=== PATIENT | female | born 1940 | race Caucasian/White ===

== ENCOUNTER 2017-05-11 20:49 | Inpatient (IN) ==
--- NOTE | 2017-05-11 21:04 | Emergency Department Note ---
Disposition Clinical Impression: Occipital stroke Disposition: Admitted As Inpatient Condition: Good Time of Disposition: 22:35 Neuro HPI - General Chief Complaint: ED Neuro Symptoms/Deficit Stated Complaint: CT Head poss stroke showed bleeding Time Seen by Provider: 05/11/17 20:51 Source: patient Mode of arrival: wheelchair Limitations: no limitations Nursing Notes Reviewed: Yes Vital Signs Reviewed: Yes - History of Present Illness HPI Narrative: Patient is a 76-year-old female with past medical history of hypertension, diabetes, high cholesterol, smoking history. She has as a history of previous MO. Denies any history of strokes, TIA. She presents today due to abnormal MRI. She says that on Monday, she started having symptoms of clotting in vision, difficulty concentrating, abnormal gait, headache. She followed up with [facility] on Monday and had a head CT that she says showed a possible abnormality, she is treated for pain and sent home and was told a neurologist was supposed to call her. She says neurology never called. She then followed up with her primary care physician and had an MRI ordered. She got a call today that her MRI was abnormal and she needed to come immediately to the ER. On presentation, patient denies any worsening of symptoms. She has continued clotting in the peripheral vision, continued difficulty concentrating , continued feeling off balance. Denies any dizziness, any other numbness, tingling, weakness, slurring of speech, facial droop. 2 family members are with her and confirm this story. Not on blood thinners - Related Data Home Medications: Home Medications Medication Instructions Recorded Confirmed Atorvastatin Calcium [Lipitor] 20 mg PO HS 05/11/17 05/11/17 Citalopram [CeleXA] 20 mg PO DAILY 05/11/17 05/11/17 Isosorbide MONOnitrate (24 HR) 30 mg PO DAILY 05/11/17 05/11/17 [Imdur] Lisinopril [Zestril] 20 mg PO DAILY 05/11/17 05/11/17 Sitagliptin Phos/Metformin HCl 1 tab PO BID 05/11/17 05/11/17 [Janumet 50-1,000 mg Tablet] amLODIPine [Norvasc] 5 mg PO DAILY 05/11/17 05/11/17 Allergies/Adverse Reactions: Allergies Allergy/AdvReac Type Severity Reaction Status Date / Time Sulfa (Sulfonamide Allergy Hives Verified 05/11/17 21:02 Antibiotics) All systems ED: reviewed and negative except as stated. Constitutional: Denies: fever Eyes: Reports: vision change Cardiovascular: Denies: chest pain, palpitations Respiratory: Denies: cough, dyspnea, wheezes Gastrointestinal: Denies: abdominal pain, nausea, vomiting Musculoskeletal: Denies: back pain, neck pain Neurological: Reports: headache (not currently, had one on monday). Denies: weakness, numbness, paresthesias Past Medical History - Past Medical History Medical history: Reports: diabetes, hypertension, myocardial infarction Psychiatric history: Reports: no psych history - Social History Smoking Status: Current every day smoker Alcohol use: Reports: none Drug use: Reports: none Physical Exam - General Limitations: no limitations General appearance: alert - Head Head exam: atraumatic, normocephalic, normal inspection - Eye Eye exam: Present: normal appearance, PERRL, EOMI - ENT ENT exam: normal exam, normal oropharynx, mucous membranes moist - Neck Neck exam: Present: normal inspection, full ROM, trachea midline - Chest Chest inspection: Present: normal inspection, symmetric chest wall rise - Respiratory Respiratory exam: Present: normal lung sounds bilaterally - Cardiovascular Cardiovascular exam: Present: regular rate, normal rhythm, normal heart sounds - Abdominal Exam Abdominal exam: Present: soft, Non-Tender. Absent: tenderness, distention, guarding, rebound, rigidity - Extremities Exam Extremities exam: Present: normal inspection, full ROM. Absent: tenderness, pedal edema - Neurological Exam Neurological exam: Present: alert, oriented X3, other (Clouding in peripheral vision but no loss of vision; no other focal neurologic deficit. No facial droop, no slurring of speech, no drift of bilateral upper and lower extremities. Sensation intact of all extremity. No ataxia with finger-nose- finger testing bilaterally). Absent: motor sensory deficit - Psychiatric Psychiatric exam: Present: normal affect, normal mood - Skin Skin exam: Present: warm, dry, intact, normal color Course Course Narrative: Patient is hypertensive. The rest of the vitals within normal limits. Physical exam shows clouding of vision but no loss of vision. Otherwise, no other focal neurologic deficit. No facial droop, no slurring of speech, no drift of bilateral upper and lower extremities. Sensation intact of all extremity. No ataxia with [id number] testing bilaterally. Visual change started monday, no need for stroke alert at this time. Outside window for TPA or embolectomy. MRI shows: IMPRESSION: 1. Acute small volume ischemic infarct in the right occipital lobe. 2. No acute intracranial hemorrhage or mass effect. 3. Multifocal encephalomalacia in the bilateral frontal and right occipital lobes and multiple remote lacunar infarcts in the basal ganglia, thalami, and cerebellar hemispheres suggesting chronic central embolic etiology. 4. Moderate chronic white matter microvascular ischemic changes. 5. Incidental small left parietal parafalcine meningioma. No associated mass effect. We will wait for basic blood work to come back and then we will admit for further stroke workup. 22:11 Hgb and WBC, Creatinine is WNL. Trop negative. Will admit for further care. Vital Signs Temperature 98.6 F 05/11/17 20:57 Pulse Rate 91 05/11/17 20:57 Respiratory Rate 18 05/11/17 20:57 Blood Pressure 181/76 05/11/17 20:57 O2 Sat by Pulse Oximetry 93 05/11/17 20:57 Temperature 98.3 F 05/11/17 23:47 Pulse Rate 75 05/11/17 23:47 Respiratory Rate 17 05/11/17 23:47 Blood Pressure 162/65 05/11/17 23:47 O2 Sat by Pulse Oximetry 92 05/11/17 23:47 Oxygen Delivery Oxygen Delivery Room Air Neuro Symptoms/Deficit - MDM Narrative Medical decision making narrative: MRI shows occipital stroke. Hgb and WBC, Creatinine is WNL. Trop negative. Will admit for further care. We will wait for basic blood work to come back and then we will admit for further stroke workup. Dr. Valdez wanted me to contact neuro for any recs once admitted. Dr. Arias recommended daily aspirin and at CTA of the neck once admitted. - Medical Records Medical records reviewed: Yes I reviewed the patient's medical records. - Lab Data Lab results reviewed: Yes I reviewed the patient's lab results. Result diagrams: 05/11/17 20:57 05/11/17 21:19 Lab Results 05/11/17 05/11/17 05/11/17 Range/Units 20:57 20:57 21:19 WBC 10.0 (4.3-11.1) K/mcL RBC 5.41 H (3.82-4.97) M/mcL Hgb 13.0 (11.5-15.4) g/dL Hct 41.8 (35.3-44.9) % MCV 77.3 L (83.0-100.0) fL MCH 24.0 L (28.0-33.3) pg MCHC 31.1 L (31.6-35.5) g/dL RDW 19.0 H (11.5-14.5) % Plt Count 369 (140-400) K/mcL MPV 9.2 L (9.4-12.4) fL Immature Gran % 0.2 (0-4) % Seg Neutrophils % 71.4 % Lymphocytes % 20.5 % Monocytes % 6.2 % Eosinophils % 1.1 % Basophils % 0.6 % Neutrophils # 7.2 (1.6-8.9) K/mcL Lymphocytes # 2.1 (0.6-4.6) K/mcL Monocytes # 0.6 (0.0-1.3) K/mcL Eosinophils # 0.1 (0.0-0.6) K/mcL Basophils # 0.1 (0.0-0.2) K/mcL Immature Plt Fraction 3.4 (1.1-6.1) % PT 11.3 (9.4-12.1) Seconds INR 1.1 APTT 32.1 (26.0-36.0) Seconds Sodium 134 L (136-145) mEq/L Potassium 4.2 (3.5-4.5) mEq/L Chloride 105 (98-109) mEq/L Carbon Dioxide 17 L (19-29) mEq/L BUN 6 L (7-20) mg/dL Creatinine 0.74 (0.57-1.11) mg/dL Est GFR ( Amer) > 60 (> 60) Est GFR (Non-Af Amer) > 60 (> 60) BUN/Creatinine Ratio 8 (6-26) Glucose 114 H (70-99) mg/dL Calculated Osmolality 276 L (280-300) Calcium 9.6 (8.6-10.8) mg/dL Troponin I (0-0.03) ng/mL 05/11/17 Range/Units 21:19 WBC (4.3-11.1) K/mcL RBC (3.82-4.97) M/mcL Hgb (11.5-15.4) g/dL Hct (35.3-44.9) % MCV (83.0-100.0) fL MCH (28.0-33.3) pg MCHC (31.6-35.5) g/dL RDW (11.5-14.5) % Plt Count (140-400) K/mcL MPV (9.4-12.4) fL Immature Gran % (0-4) % Seg Neutrophils % % Lymphocytes % % Monocytes % % Eosinophils % % Basophils % % Neutrophils # (1.6-8.9) K/mcL Lymphocytes # (0.6-4.6) K/mcL Monocytes # (0.0-1.3) K/mcL Eosinophils # (0.0-0.6) K/mcL Basophils # (0.0-0.2) K/mcL Immature Plt Fraction (1.1-6.1) % PT (9.4-12.1) Seconds INR APTT (26.0-36.0) Seconds Sodium (136-145) mEq/L Potassium (3.5-4.5) mEq/L Chloride (98-109) mEq/L Carbon Dioxide (19-29) mEq/L BUN (7-20) mg/dL Creatinine (0.57-1.11) mg/dL Est GFR ( Amer) (> 60) Est GFR (Non-Af Amer) (> 60) BUN/Creatinine Ratio (6-26) Glucose (70-99) mg/dL Calculated Osmolality (280-300) Calcium (8.6-10.8) mg/dL Troponin I 0.01 (0-0.03) ng/mL - Radiology Data Radiology results reviewed: Yes I reviewed the patient's radiology results. Sudhir - Sudhir Situation: Demographics, MOA Background: Presenting Complaint, Relevant PMH, Meds, & Allergies Assessment: Vital Signs, Course and respsone to treatment, Exam Concerns, Patient/Family Expectation, Pertinant Lab Results, Outstanding Labs Recommendation: Barrier(s) to disposition, Recommendation based on pending studies, treatments, or consults Sudhir Report Given to: Dr. Courtney Peguero Repor Time: 22:35 Attestation Statement - Attestation Attestation: I, Johnathan Engel, examined this patient and my medical decision-making was reviewed with the SCIENTIFIC MANAGER/PA/Advanced Practice Nurse/Resident Physician. I agree with the documented findings, disposition and treatment plan as described except to the extent set forth below. 76-year-old female presents emergency Department with concerns of CVA. Patient states she was seen recently for acute onset of lightheadedness and difficulty with ambulation. She was discharged home, her PCP ordered MRI which shows a posterior CVA. Patient will be admitted to the emergency department for further evaluation of subacute CVA
[2017-05-11 21:27] LABS: Basophils # 0.1 K/mcL (0.0-0.2); Basophils % 0.6 %; Eosinophils # 0.1 K/mcL (0.0-0.6); Eosinophils % 1.1 %; Hematocrit 41.8 % (35.3-44.9); Immature Granulocytes % 0.2 % (0-4); Immature Platelets 3.4 % (1.1-6.1); Lymphocytes # 2.1 K/mcL (0.6-4.6); Lymphocytes % 20.5 %; Mean Corpuscular HGB Conc 31.1 g/dL (31.6-35.5); Mean Corpuscular Volume 77.3 fL (83.0-100.0); Mean Platelet Volume 9.2 fL (9.4-12.4); Monocytes # 0.6 K/mcL (0.0-1.3); Monocytes % 6.2 %; Neutrophils # 7.2 K/mcL (1.6-8.9); Platelet Count 369 K/mcL (140-400); Red Blood Count 5.41 M/mcL (3.82-4.97); Segmented Neutrophils % 71.4 %
[2017-05-11 21:33] LABS: INR 1.1; Prothrombin Time 11.3 Seconds (9.4-12.1)
[2017-05-11 21:36] LABS: Activated Partial Thrombo Time 32.1 Seconds (26.0-36.0)
[2017-05-11 22:02] LABS: BUN/Creatinine Ratio 8 (6-26); Blood Urea Nitrogen 6 mg/dL (7-20); Calcium 9.6 mg/dL (8.6-10.8); Carbon Dioxide 17 mEq/L (19-29); Chloride 105 mEq/L (98-109); Glucose 114 mg/dL (70-99); Osmolality,Calculated 276 (280-300); Potassium 4.2 mEq/L (3.5-4.5); Sodium 134 mEq/L (136-145); eGFR For African Americans > 60 (> 60); eGFR For Non-African Americans > 60 (> 60)
[2017-05-11] MEDS ORDERED: Aspirin 325 MG TABLET PO ONE (22:30)
[2017-05-12] MEDS ORDERED: Naloxone 0.4 MG/ML INJ IVP PRN (00:28)
[2017-05-12] MEDS ORDERED: *HR* Dextrose 50 % in Water (Syg) 50 ML SYRINGE IVP PRN (00:28)
[2017-05-12] MEDS ORDERED: Acetaminophen 325 MG TABLET PO PRN (00:28)
[2017-05-12] MEDS ORDERED: Dextrose Gel 15 GM PO PRN ×2 (00:28)
[2017-05-12] MEDS ORDERED: D5% in Water 1,000 ML IVC PRN (00:28)
[2017-05-12] MEDS ORDERED: Ondansetron 4 MG/2 ML VIAL IVP PRN (00:28)
--- NOTE | 2017-05-12 00:28 | Internal Med History&Physical ---
<Travon Edge - Last Filed: 05/12/17 01:18> Date of Encounter: 05/12/17 Time of Encounter: 23:45 Assessment and Plan (1) Occipital stroke Current visit: Yes Status: Acute Patient found to have acute CVA occipital region. This distribution corresponds to her reported symptoms. Because patient reports symptoms started Monday, patient beyond the window for embolectomy or TPA. Patient beyond window for allowing permissive hypertension. Patient hypertension will be addressed with her home indications Neuro has been consulted by the ET, appreciate recommendations for continued management/care Marky aspirin We will obtain CTA of head and neck Continue patient home dose Lipitor 20 mg Lipid panel in morning Electrolytes and CBC in morning (2) Hypertension Current visit: Yes Status: Acute Patient has a history of hypertension and uses amlodipine and lisinopril at home. Patient out of the acute phase of CVA, so no longer allowing permissive hypertension. Will restart patient's home medications Qualifiers: Hypertension type: essential hypertension Qualified Code(s): I10 - Essential (primary) hypertension (3) Diabetes mellitus Current visit: Yes Status: Acute Hold patient's oral hypoglycemic Start low-dose insulin sliding scale Qualifiers: Diabetes mellitus type: type 2 Diabetes mellitus complication status: with unspecified complications Diabetes mellitus technician terminal and repeater insulin use: without technician terminal and repeater use Qualified Code(s): E11.8 - Type 2 diabetes mellitus with unspecified complications (4) CAD (coronary artery disease) Current visit: Yes Status: Chronic Stable Qualifiers: Coronary Disease-Associated Artery/Lesion type: [place] artery [place] vs. transplanted heart: [place] heart Associated angina: angina presence unspecified Qualified Code(s): I25.10 - Atherosclerotic heart disease of [place] coronary artery without angina pectoris (5) DVT prophylaxis Current visit: Yes Status: Acute 40 mg Lovenox subcutaneous daily Internal Medicine - H&P: HPI Chief complaint: Acute CVA Admitted From: Home Plans for Post Hospital Care: Home History of present illness: Ms. Marin is a 76 year old female with prior medical history of coronary artery disease (with heart attack in 1993 with 1 stent), hypertension, diabetes , hyperlipidemia presents to [facility] after results of MRI earlier this afternoon. She reports that beginning on Monday she began experiencing severe headache unlike any headache she said before, she reports the pain is 9/10 in severity and in bilateral temples. She had no neck stiffness or for phobia at this time , but due to her concern of headache she presented to [facility] ER. They did some scans and told her there is something abnormal on her CT urogram syrup with neuro, she has not heard anything since then. She reports that she continued to have headache despite trying Tylenol nothing was making it better, nothing is making it worse. She states that given the duration of her headache she was also complaining of some fatigue and changes in her vision including blurriness , floaters, and wavy appearance of her peripheral vision. She denies ever having numbness/tingling, unilateral weakness, facial droop, or slurred speech. He denies palpitations, chest pain, shortness of breath, fever/chills. She saw her PCP on Monday who gave her a shot and order an MRI. She had the MRI earlier this afternoon and on her way home she was called by [facility] due to the finding of an acute CVA in the occipital region of her head. Past Med Surg Social Fam HX - Past Medical History Medical history: diabetes, hypertension, myocardial infarction Psychiatric history: no psych history - Social History Smoking Status: Current every day smoker Alcohol use: none Drug use: none Internal Medicine - H&P: Meds Atorvastatin Calcium [Lipitor] 20 mg PO HS 05/11/17 [History] Citalopram [CeleXA] 20 mg PO DAILY 05/11/17 [History] Isosorbide MONOnitrate (24 HR) [Imdur] 30 mg PO DAILY 05/11/17 [History] Lisinopril [Zestril] 20 mg PO DAILY 05/11/17 [History] Sitagliptin Phos/Metformin HCl [Janumet 50-1,000 mg Tablet] 1 tab PO BID [History] amLODIPine [Norvasc] 5 mg PO DAILY 05/11/17 [History] 3 Allergy/AdvReac Type Severity Reaction Status Date / Time Sulfa (Sulfonamide Allergy Hives Verified 05/11/17 21:02 Antibiotics) Review of systems: Gen: Denies fever, denies chills, denies weightloss, denies weakness, reports fatigue CV: Denies chest pain, denies exertional chest pain or dyspnea, denies palpitations Resp: Denies shortness of breath, denies dyspnea, denies pleuritic pain, denies coughing, denies changes in phlegm production, denies wheeze GI: Denies nausea, denies vomiting, denies abdominal pain, denies constipation, denies diarrhea, denies hematochezia, denies melena MSK: denies arthralgia, denies muscle weakness Neuro: Reports headache as per history of present illness, denies confusion, denies focal weakness, denies numbness, denies tingling, reports vision changes as per history of present illness, denies slurred speech, reports vertigo ( present prior to CVA), denies neck pain, denies photophobia Skin: Denies bruising, denies rash : Denies flank pain, denies dysuria, denies hematuria - Constitutional Vitals: Temp Pulse Resp BP Pulse Ox 98.3 F 75 17 162/65 92 05/11/17 23:47 05/11/17 23:47 05/11/17 23:47 05/11/17 23:47 05/11/17 23:47 Exam: General: Cooperative, pleasant, no acute distress, alert and oriented 3, answers questions appropriately HEENT: Normocephalic, atraumatic, neck supple, trachea midline, Conjunctiva pink , sclera anicteric, EOMI, PERRL, oral mucosa moist, no orophargeal erythema or exudates Respiratory: No accessory muscle usage, clear to auscultation bilaterally, no wheezes/rhonchi/rales appreciated Cardiovascular: Regular rate and rhythm, S1 and S2 present, no murmurs/rubs/ gallops/clicks appreciated GI/abdominal: Nondistended, nontender, soft, normal bowel sounds, no peritoneal signs Extremities: No calf tenderness, noncyanotic, no pedal edema appreciated, warm, lower extremity pulses palpable and symmetrical Neurological: Alert and oriented 3, no facial droop, no focal deficits, cranial nerves II through XII grossly intact, sensation to light touch grossly intact, strength 5/5 in upper and lower extremities bilaterally, rapid alternating movement smooth with good [place], [id number] accurate without tremors, mild nystagmus present, Romberg negative, gait slightly unbalanced, but grossly steady Skin: Dry, intact, normal color Internal Med - H&P Results - Labs CBC & Chem 7: 05/11/17 20:57 05/11/17 21:19 <Chalino Watts T - Last Filed: 05/12/17 01:55> Date of Encounter: 05/12/17 Internal Medicine - H&P: HPI History of present illness: Ms. Marin is a 76 year old female All Systems PM: A 10-system review of systems was performed and is negative for pertinent findings except as documented above in the HPI. - Constitutional Vitals: Temp Pulse Resp BP Pulse Ox 98.3 F 75 17 162/65 92 05/11/17 23:47 05/11/17 23:47 05/11/17 23:47 05/11/17 23:47 05/11/17 23:47 Internal Med - H&P Results - Labs CBC & Chem 7: 05/11/17 20:57 05/11/17 21:19 - Attending Attestation I have independently seen and examined this patient on 05/12/17 and reviewed plan of care with the NEW ACCOUNTS BANKING REPRESENTATIVE/resident physician and the patient She is admitted following a finding of occipital infarct on her brain MRI which was ordered by her PCP after patient complained of blurry vision and headaches, she is asymptomatic at time of review. Physical Exam: VSS, not in distress. Neuro: AAOX3, no gross deficits, chest is CTAB, not tender no guarding. BS present in all quadrants. Her chest is CTAB Labs and Imaging reviewed: Mild hyponatremia, otherwise unremarkable A/P Acute Ischemic CVA with no motor or speech deficits: Onset about a week. ASA/ Statin, continue home meds. Patient has an ECHO from 02/2017 that was unremarkable except for mild MS/MR. Her Infarct is not embolic in nature, no need to repeat ECHO at this time. Head/Neck CTA per Neuro. Rest of details as in resident physicians documentation
[2017-05-12] MEDS: Melatonin 3 MG TABLET PO PRN ×2 (01:19→23:11)
[2017-05-12] MEDS: *HR* Enoxaparin 40 MG/0.4 ML SYRINGE SQ SCH (06:36)
[2017-05-12 06:44] LABS: Basophils # 0.1 K/mcL (0.0-0.2); Basophils % 0.6 %; Eosinophils # 0.1 K/mcL (0.0-0.6); Eosinophils % 1.8 %; Hematocrit 37.9 % (35.3-44.9); Hemoglobin 12.1 g/dL (11.5-15.4); Immature Granulocytes % 0.4 % (0-4); Lymphocytes # 2.1 K/mcL (0.6-4.6); Lymphocytes % 26.1 %; Mean Corpuscular HGB Conc 31.9 g/dL (31.6-35.5); Mean Corpuscular Hemoglobin 24.7 pg (28.0-33.3); Mean Corpuscular Volume 77.3 fL (83.0-100.0); Mean Platelet Volume 9.2 fL (9.4-12.4); Monocytes # 0.7 K/mcL (0.0-1.3); Monocytes % 8.8 %; Platelet Count 301 K/mcL (140-400); Segmented Neutrophils % 62.3 %
[2017-05-12 07:04] LABS: BUN/Creatinine Ratio 8 (6-26); Blood Urea Nitrogen 6 mg/dL (7-20); Calcium 9.4 mg/dL (8.6-10.8); Carbon Dioxide 18 mEq/L (19-29); Chloride 111 mEq/L (98-109); Cholesterol 107 mg/dL (< 200); Glucose 126 mg/dL (70-99); HDL Cholesterol 36 mg/dL (40-59); LDL Cholesterol,Calculated 47 mg/dL (0-99); Magnesium 1.8 mg/dL (1.6-2.6); Osmolality,Calculated 289 (280-300); Phosphorous 3.7 mg/dL (2.3-4.7); Potassium 4.1 mEq/L (3.5-4.5); Sodium 140 mEq/L (136-145); Triglycerides 119 mg/dL (< 150); eGFR For African Americans > 60 (> 60); eGFR For Non-African Americans > 60 (> 60)
[2017-05-12] MEDS: Insulin LISPRO 300 UNITS/3 ML VIAL SQ SCH ×3 (08:12→17:20)
[2017-05-12] MEDS ORDERED: Aspirin 325 MG TABLET PO SCH ×2 (09:00→11:30)
--- NOTE | 2017-05-12 09:53 | Neurology - Consult Note ---
Date of Encounter: 05/12/17 Time of Encounter: 08:05 Assessment and Plan (1) Occipital stroke Current Visit: Yes Status: Acute This patient who noted to have an occipital infarct on an MRI that was done as an outpatient is some blurred vision as well as the headaches. At this time she denies any significant headaches she is still having some blurred vision but no visual field deficit noted on examination. Certainly the blurred vision could be related to the occipital infarct. She does have multiple risk factors including hypertension and diabetes that need to be controlled and make sure that this is within normal limit Patient has been on aspirin for quite some time I suggested that we should change her antiplatelet therapy to Plavix and discontinue aspirin as do not think that she would require dual antiplatelet therapy. She will need workup including CT angiogram of the neck particularly to look for posterior circulation abnormalities for any stenosis or any embolic source at the same time she also needs an echocardiogram. Due to the fact that she did not have any focal motor weakness do not think that she would require any physical therapy or rehabilitation. 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 Marin is a 76 year old female with Past medical history of coronary artery disease, hypertension, diabetes, hyperlipidemia presents to [facility] after having out pt MRI that showed occipitlal infarct, according to pt, since Monday she began experiencing severe headache in bilateral temples. as she was concern of headache she presented to [facility] ER. They did some scans and told her there is something abnormal on her CT and told to followup with neuro, she has not heard anything since then. She reports that she continued to have headache despite trying Tylenol, she was also complaining of some fatigue and changes in her vision describe it as blurriness, floaters, and wavy appearance of her peripheral vision. She denies ever having numbness/tingling, unilateral weakness, facial droop, or slurred speech. later She saw her PCP on Monday who gave her a shot and order an MRI. She had the MRI earlier this afternoon and on her way home she was called by [facility] due to the finding of an acute CVA in the occipital region. she denies any new symptoms as doing well now. no focal motor weakness. Past Med Surg Social Fam HX - Past Medical History Medical history: CVA, diabetes, hyperlipidemia, hypertension, myocardial infarction Psychiatric history: no psych history - Past Surgical History Surgical History: cholecystectomy - Social History Smoking Status: Current every day smoker Packs per day: 1 Alcohol use: none Drug use: none - Family History Mother Living Status: Age at : 86 Cause of : Renal disease Hx Family Cardiac Disorders: Yes (CKD) Hx Family Cancer: Yes (Cervical cancer) Medications and Allergies Atorvastatin Calcium [Lipitor] 20 mg PO HS 05/11/17 [History] Citalopram [CeleXA] 20 mg PO DAILY 05/11/17 [History] Isosorbide MONOnitrate (24 HR) [Imdur] 30 mg PO DAILY 05/11/17 [History] Lisinopril [Zestril] 20 mg PO DAILY 05/11/17 [History] Sitagliptin Phos/Metformin HCl [Janumet 50-1,000 mg Tablet] 1 tab PO BID [History] amLODIPine [Norvasc] 5 mg PO DAILY 05/11/17 [History] 3 Allergy/AdvReac Type Severity Reaction Status Date / Time Sulfa (Sulfonamide Allergy Hives Verified 05/11/17 21:02 Antibiotics) All Systems: A 10-system review of systems was performed and is negative for pertinent findings except as documented above in the HPI. Physical Examination - Vital Signs Vital Signs: Initial Vital Signs Temp Pulse Resp BP Pulse Ox 98.6 F 91 18 181/76 93 05/11/17 20:57 05/11/17 20:57 05/11/17 20:57 05/11/17 20:57 05/11/17 20:57 - Constitutional General appearance: comfortable - Neurologic Detailed motor examination: full strength in all major muscle groups Motor examination - right side: 5/5: deltoids, biceps, triceps, wrist flexion, wrist extension, master ocean, hip flexors, tibialis Anterior, quadriceps, toe extension (EHL), plantarflexion Motor examination - left side: 12/23: deltoids, biceps, triceps, wrist flexion, wrist extension, hip flexors, master ocean, quadriceps, tibialis Anterior, toe extension (EHL), plantarflexion Reflexes: Biceps: 1+, Triceps: 1+, Brachioradialis: 1+, Patella: 1+, Achilles: 1 + Mental Status Examination: awake, alert, oriented to person, oriented to place, oriented to time, follows commands appropriately, answers questions appropriately, no agnosia, no aphasia, no aproxia, follows simple commands (no visual field cut, just blurred vision in both eyes) Cranial nerve examination: PERRL, EOMI, visual case intact, corneal reflexes brisk symmetrically, sensory to face intact, mastication intact, no facial asymmetry is present, no dysarthria, hearing is intact symmetrically, soft palate elevates bilaterally upon phonation, gag reflex intact, flexes SCM and trapezius muscles symmetrically with full power, tongue protrudes midline, no atrophy or facial fasiculations present Cerebellar examination: no dysmetria, performs finger to nose and heel to montaño symmetrically without ataxia, no gait ataxia, no truncal ataxia, no difficulty with rapid alternating movements Results - Laboratory Findings CBC and BMP: 05/12/17 06:27 05/12/17 06:27 Abnormal lab findings: Abnormal lab results MCV 77.3 fL (83.0-100.0) L 05/12/17 06:27 MCH 24.7 pg (28.0-33.3) L 05/12/17 06:27 RDW 19.0 % (11.5-14.5) H 05/12/17 06:27 MPV 9.2 fL (9.4-12.4) L 05/12/17 06:27 Chloride 111 mEq/L (98-109) H 05/12/17 06:27 Carbon Dioxide 18 mEq/L (19-29) L 05/12/17 06:27 BUN 6 mg/dL (7-20) L 05/12/17 06:27 Glucose 126 mg/dL (70-99) H 05/12/17 06:27 POC Glucose 144 (58-89) H 05/12/17 01:01 HDL Cholesterol 36 mg/dL (40-59) L 05/12/17 06:27 Consult Discharge Plan - Plan Referrals: Aura Marr, LIDIA [Primary Care Provider] -
[2017-05-12] MEDS: Lisinopril 20 MG TABLET PO SCH (11:39)
[2017-05-12] MEDS: amLODIPine 5 MG TABLET PO SCH (11:39)
[2017-05-12] MEDS: Isosorbide MONOnitrate (24 HR) 30 MG TAB.ER.24H PO SCH (11:39)
--- NOTE | 2017-05-12 17:43 | Internal Med Progress Note ---
Date of Encounter: 05/12/17 Time of Encounter: 10:00 - Assessment and plan (1) Occipital stroke Current Visit: Yes Status: Acute Assessment and plan: Patient has dizziness and vision change 5 days ago. Outside MRI shows occipital stroke. Symptoms improved now. - We will continue cardiac monitoring. Check echo. Angiogram of neck and head. - Place patient on Plavix per neurology consult. -Patient is also on atorvastatin. - We will follow-up neurology further recommendations (2) Diabetes mellitus Current Visit: Yes Status: Acute Assessment and plan: Cover patient with sliding scale Qualifiers: Diabetes mellitus type: type 2 Diabetes mellitus complication status: with unspecified complications Diabetes mellitus intermodal customer service insulin use: without care home use Qualified Code(s): E11.8 - Type 2 diabetes mellitus with unspecified complications (3) Hypertension Current Visit: Yes Status: Acute Assessment and plan: Continue home medications Qualifiers: Hypertension type: essential hypertension Qualified Code(s): I10 - Essential (primary) hypertension (4) DVT prophylaxis Current Visit: Yes Status: Acute Assessment and plan: Lovenox SC (5) CAD (coronary artery disease) Current Visit: Yes Status: Chronic Assessment and plan: Denies chest pain. Continue home medications Qualifiers: Coronary Disease-Associated Artery/Lesion type: [place] artery [place] vs. transplanted heart: [place] heart Associated angina: angina presence unspecified Qualified Code(s): I25.10 - Atherosclerotic heart disease of [place] coronary artery without angina pectoris - Time Spent With Patient 25 - 35 minutes - Subjective Interval history: Patient is a 76-year-old female admitted for occipital stroke. Her past medical history significant for diabetes, hypertension, hyperlipidemia, CAD S/P stent Pt was seen and examined. Blurred vision has been improved. Patient has no visual field deficit on physical exam. Vitals are stable. Neurology consult appreciated. Patient is on Plavix and atorvastatin. - Constitutional Vitals: Temp Pulse Resp BP Pulse Ox 98.2 F 95 12 153/61 95 05/12/17 15:08 05/12/17 15:08 05/12/17 15:08 05/12/17 15:08 05/12/17 15:08 - Head Head exam: Present: atraumatic, normocephalic - Eye Eye exam: Present: PERRL, conjuntiva pink, sclera anicteric Pupils: Present: PERRL - Neck Neck exam general surgery: Present: supple, trachea midline. Absent: lymphadenopathy - Respiratory Respiratory exam: Present: CTAB. Absent: accessory muscle use, rales, rhonchi, wheezes - Cardiovascular Cardiovascular exam: Present: RRR, +S1, +S2. Absent: diastolic murmur, gallop, rubs, systolic murmur - GI/Abdominal GI/Abdominal exam: Present: normal bowel sounds, soft, no peritoneal signs. Absent: distended, tenderness - Extremities Exam Extremities exam: Present: warm, radial pulses palpable and symmetrical. Absent : calf tenderness, cyanotic, pedal edema - Neurological Exam Neurological exam: Present: CN II-XII intact, oriented X3, no focal deficits. Absent: pronater drift, facial droop, speech deficit - Skin Skin exam: Present: dry, intact Internal Medicine: Result - Labs CBC & Chem 7: 05/12/17 06:27 05/12/17 06:27 - ABG Interpretation ABG results: PT/INR, D-dimer PT 11.3 Seconds (9.4-12.1) 05/11/17 20:57 Consult Discharge Plan - Plan Referrals: Aura Marr, ANGLE SHEAR OPERATOR [Primary Care Provider] -
[2017-05-12] MEDS ORDERED: Insulin LISPRO 300 UNITS/3 ML VIAL SQ SCH (21:00)
[2017-05-13] MEDS: *HR* Enoxaparin 40 MG/0.4 ML SYRINGE SQ SCH (06:21)
[2017-05-13 06:34] LABS: Basophils # 0.1 K/mcL (0.0-0.2); Basophils % 0.6 %; Eosinophils # 0.2 K/mcL (0.0-0.6); Hematocrit 36.3 % (35.3-44.9); Hemoglobin 11.5 g/dL (11.5-15.4); Immature Granulocytes % 0.2 % (0-4); Lymphocytes # 2.1 K/mcL (0.6-4.6); Lymphocytes % 25.6 %; Mean Corpuscular HGB Conc 31.7 g/dL (31.6-35.5); Mean Corpuscular Hemoglobin 24.4 pg (28.0-33.3); Mean Corpuscular Volume 77.1 fL (83.0-100.0); Mean Platelet Volume 9.5 fL (9.4-12.4); Monocytes # 0.8 K/mcL (0.0-1.3); Monocytes % 9.5 %; Neutrophils # 5.1 K/mcL (1.6-8.9); Platelet Count 303 K/mcL (140-400); Red Blood Count 4.71 M/mcL (3.82-4.97); Red Cell Distribution Width 18.4 % (11.5-14.5); Segmented Neutrophils % 62.1 %
[2017-05-13 06:49] LABS: BUN/Creatinine Ratio 9 (6-26); Blood Urea Nitrogen 7 mg/dL (7-20); Calcium 9.3 mg/dL (8.6-10.8); Carbon Dioxide 19 mEq/L (19-29); Chloride 107 mEq/L (98-109); Glucose 140 mg/dL (70-99); Osmolality,Calculated 282 (280-300); Sodium 136 mEq/L (136-145); eGFR For African Americans > 60 (> 60); eGFR For Non-African Americans > 60 (> 60)
[2017-05-13] MEDS: Lisinopril 20 MG TABLET PO SCH (08:16)
[2017-05-13] MEDS: amLODIPine 5 MG TABLET PO SCH (08:16)
[2017-05-13] MEDS: Isosorbide MONOnitrate (24 HR) 30 MG TAB.ER.24H PO SCH (08:16)
[2017-05-13] MEDS: Insulin LISPRO 300 UNITS/3 ML VIAL SQ SCH (08:16)
--- NOTE | 2017-05-13 14:57 | Discharge Summary ---
Date of Encounter: 05/13/17 Time of Encounter: 10:00 - Discharge Diagnosis (1) Occipital stroke Priority: Primary Status: Acute (2) Diabetes mellitus Priority: Secondary Status: Acute Qualifiers: Diabetes mellitus type: type 2 Diabetes mellitus complication status: with unspecified complications Diabetes mellitus termite control service representative insulin use: without long-term use Qualified Code(s): E11.8 - Type 2 diabetes mellitus with unspecified complications (3) Hypertension Priority: Secondary Status: Acute Qualifiers: Hypertension type: essential hypertension Qualified Code(s): I10 - Essential (primary) hypertension (4) DVT prophylaxis Priority: Secondary Status: Acute (5) CAD (coronary artery disease) Priority: Secondary Status: Chronic Qualifiers: Coronary Disease-Associated Artery/Lesion type: [place] artery [place] vs. transplanted heart: [place] heart Associated angina: angina presence unspecified Qualified Code(s): I25.10 - Atherosclerotic heart disease of [place] coronary artery without angina pectoris - Discharge Medications Prescriptions: amLODIPine [Norvasc] 10 mg PO DAILY #60 tablet Atorvastatin [Lipitor] 40 mg PO HS #30 tablet Clopidogrel [Plavix] 75 mg PO DAILY #30 tablet Home Medications: Citalopram [CeleXA] 20 mg PO DAILY 05/11/17 [History] Isosorbide MONOnitrate (24 HR) [Imdur] 30 mg PO DAILY 05/11/17 [History] Lisinopril [Zestril] 20 mg PO DAILY 05/11/17 [History] Sitagliptin Phos/Metformin HCl [Janumet 50-1,000 mg Tablet] 1 tab PO BID [History] Aspirin Enteric Coated [Aspirin EC] 81 mg PO DAILY #30 tablet. 05/13/17 [Rx] Atorvastatin [Lipitor] 40 mg PO HS #30 tablet 05/13/17 [Rx] Clopidogrel [Plavix] 75 mg PO DAILY #30 tablet 05/13/17 [Rx] amLODIPine [Norvasc] 10 mg PO DAILY #60 tablet 05/13/17 [Rx] Allergies/Adverse Reactions: 3 Allergy/AdvReac Type Severity Reaction Status Date / Time Sulfa (Sulfonamide Allergy Hives Verified 05/11/17 21:02 Antibiotics) - Notes to Outpatient Provider 1. Patient's amlodipine was increased from 5 mg by mouth daily to 10 mg daily due to high blood pressure. 2. Patient was given aspirin and Plavix and statin for carotid stenosis. Please repeated duplex carotid in 12 months to follow the progression of the stenosis. Date of admission: 05/12/17 13:50 Primary care physician: Aura Marr CNP Discharging clinician: Criss Mercado Anticipated date of discharge: 05/13/17 - Patient Status Disposition: Home, Self-Care Condition: Good Functional capacity at discharge: independent ambulation Overall status at discharge: patient is back to baseline - Discharge Instructions Follow Up With: Aura Marr CNP [Primary Care Provider] - Additional Instructions: Follow-up with neurology - Diet and Activity Activity: increase activity as tolerated Diet: diabetic diet, low salt diet Interval History: HPI on ADM: Ms. Marin is a 76 year old female with prior medical history of coronary artery disease (with heart attack in 1993 with 1 stent), hypertension, diabetes , hyperlipidemia presents to [facility] after results of MRI earlier this afternoon. She reports that beginning on Monday she began experiencing severe headache unlike any headache she said before, she reports the pain is 9/10 in severity and in bilateral temples. She had no neck stiffness or for phobia at this time , but due to her concern of headache she presented to [facility] ER. They did some scans and told her there is something abnormal on her CT urogram syrup with neuro, she has not heard anything since then. She reports that she continued to have headache despite trying Tylenol nothing was making it better, nothing is making it worse. She states that given the duration of her headache she was also complaining of some fatigue and changes in her vision including blurriness , floaters, and wavy appearance of her peripheral vision. She denies ever having numbness/tingling, unilateral weakness, facial droop, or slurred speech. He denies palpitations, chest pain, shortness of breath, fever/chills. She saw her PCP on Monday who gave her a shot and order an MRI. She had the MRI earlier this afternoon and on her way home she was called by [facility] due to the finding of an acute CVA in the occipital region of her head. Hospital course: Ms. Marin is a 76 year old female admitted for occipital stroke. Patient was placed on continuous cardiac monitoring, and platelet and statin. Neurology consult was called and saw patient. Patient had echo and CTA neck and head. Echo shows moderate diastolic dysfunction, otherwise unremarkable. CTA shows no vertebral and posterior cerebral circulation stenosis. However, patient has mild to moderate bilateral ICA stenosis (Rt less than 50%, Lt 50-69%). The patient was placed on medical treatment with aspirin, Plavix, and atorvastatin. Patient was advised to follow-up duplex carotid in 12 months. Generally patient functions well. Visual deficit has improved. PTOT saw patient, no further PTOT needed. Patient can be discharged home. I saw and examined the patient today. Doing fine, no complaints. BP is at high side with SBP 166, will increase patient's amlodipine from 5 mg daily to 10 mg daily. Patient will be discharged home and follow-up with PCP and neurology as outpatient. - Time Spent with Patient Total time spent providing and/or coordinating discharge services: 25 minutes Less than 30 minutes - Constitutional Vitals: Temp Pulse Resp BP Pulse Ox 98.7 F 67 16 166/70 94 05/13/17 11:15 05/13/17 11:15 05/13/17 11:15 05/13/17 11:15 05/13/17 11:15 General appearance: Present: A&O X 3, pleasant, no acute distress, answers questions appropriately - Head Head exam: Present: atraumatic, normocephalic - Eye Eye exam: Present: PERRL, conjuntiva pink, sclera anicteric Pupils: Present: PERRL - Neck Neck exam general surgery: Present: supple, trachea midline. Absent: lymphadenopathy - Respiratory Respiratory exam: Present: CTAB. Absent: accessory muscle use, rales, rhonchi, wheezes - Cardiovascular Cardiovascular exam: Present: RRR, +S1, +S2. Absent: diastolic murmur, gallop, rubs, systolic murmur - GI/Abdominal GI/Abdominal exam: Present: normal bowel sounds, soft, no peritoneal signs. Absent: distended, tenderness - Extremities Exam Extremities exam: Present: warm, radial pulses palpable and symmetrical. Absent : calf tenderness, cyanotic, pedal edema - Neurological Exam Neurological exam: Present: CN II-XII intact, oriented X3, no focal deficits. Absent: pronater drift, facial droop, speech deficit - Skin Skin exam: Present: dry, intact
[2017-05-13 15:11] VITALS: BP 156/66
== END 2017-05-13 19:15 | disposition home or self-care (01) | DRG 66 ==
LOC: EMEROO 20:49 → 2NENU 20:49
PROVIDERS: ADMIT Internal Medicine; ATTEND Internal Medicine